=== PATIENT | male | born 1970 ===

== ENCOUNTER 2022-01-26 13:58 | Day surgery (SDC) | payer OTHER | END 2022-01-26 13:59 | disposition home or self-care (01) | LOC: AMB-ENDOS 13:58 | PROVIDERS: ATTEND Colon & Rectal Surgery | DX: C20 Malignant neoplasm of rectum (principal); Z86.010 Personal history of colon polyps; K64.2 Third degree hemorrhoids; I10 Essential (primary) hypertension; Z88.8 Allergy status to other drugs, medicaments and biological substances ==